=== PATIENT | female | born 1985 | race Asian ===

== ENCOUNTER 2017-09-08 04:36 | Emergency (ER) | payer BC ==
[~2017-09-08] VITALS: Ht 157.5 cm; Wt 96.6 kg
[2017-09-08] MEDS ORDERED: MULTIVITAMINS1 EAC8 ORAL (04:45)
--- NOTE | 2017-09-08 04:56 | Emergency Room Report ---
History of Present Illness General Chief Complaint: Upper Respiratory Illness Source: Patient Present Illness HPI Patient presents with complaints of cough Body ache Runny nose sore throat ongoing for the past 2 days Patient denies any neck pain or photophobia denies any headache denies any chest pain or short of breath denies any vomiting or diarrhea Allergies: Coded Allergies: No Known Allergies (Unverified , 09/08/17) Patient History Past Medical History: see triage record Pertinent Family History: none Last Menstrual Period: Feb Reviewed Nursing Documentation: PMH: Agreed, PSxH: Agreed Nursing Documentation-PMH Past Medical History: No Stated History Review of Systems All Other Systems: negative except mentioned in HPI Physical Exam Vital Signs Date Time Temp Pulse Resp B/P (MAP) Pulse Ox O2 Delivery O2 Flow Rate FiO2 09/08/17 04:41 99.3 109 16 137/92 95 Room Air 99.3 Sp02 EP Interpretation: reviewed, normal General Appearance: well appearing, no apparent distress Head: normocephalic, atraumatic Eyes: bilateral eye PERRL, bilateral eye EOMI ENT: hearing grossly normal, TMs + canals normal, uvula midline, pharyngeal erythema Neck: full range of motion, supple, no meningismus, no bony tend Respiratory: lungs clear, normal breath sounds, no rhonchi, no respiratory distress, no retraction, no accessory muscle use Cardiovascular #1: normal peripheral pulses, regular rate, rhythm, no edema, no gallop, no JVD, no murmur Gastrointestinal: normal bowel sounds, non tender, soft, no mass, no organomegaly, non-distended, no guarding, no hernia, no pulsatile mass, no rebound Musculoskeletal: normal inspection Neurologic: oriented x3, responsive, staff air defense officer III-XII nml as tested, motor strength/ tone normal, sensory intact Psychiatric: mood/affect normal Skin: normal color, no rash, warm/dry, palpation normal Lymphatic: normal inspection, no adenopathy Medical Decision Making Diagnostic Impression: Primary Impression: Flu-like symptoms ER Course Multiple differentials considered Patient's exam however is in line with what appears to be likely flulike symptoms Lung olsen are otherwise clear no signs of any respiratory distress Hemodynamically stable as well given the patient's presentation within 48 hours she will have attempt on Tamiflu And will have initial conservative outpatient trial Last Vital Signs Date Time Temp Pulse Resp B/P (MAP) Pulse Ox O2 Delivery O2 Flow Rate FiO2 09/08/17 04:41 99.3 109 16 137/92 95 Room Air 99.3 Status: unchanged Disposition: HOME, SELF-CARE Condition: Stable Additional Instructions: Patient is provided with the discharge instructions notified to follow up with primary doctor in the next 2-3 days otherwise return to the er with any worsening symptoms. Please note that this report is being documented using [employer] technology. This can lead to erroneous entry secondary to incorrect interpretation by the dictating instrument. MARK IBRAHIM D.O. Sep 08, 2017 04:56
[2017-09-08] MEDS ORDERED: ALBUTEROL SULF8.5 GM INH (04:58)
[2017-09-08] MEDS ORDERED: TAMIFLU75 MG ORAL (04:58)
[2017-09-08] MEDS ORDERED: PREDNISONE20 MG ORAL (04:58)
[2017-09-08] MEDS ORDERED: IBUPROFEN600 MG ORAL (04:58)
[2017-09-08 05:16] VITALS: BP 137/92
== END 2017-09-08 05:05 | disposition home or self-care (01) ==
LOC: EMR 05:01
DX: J11.1 Influenza due to unidentified influenza virus with other respiratory manifestations (principal)
CPT/HCPCS: 99282

== ENCOUNTER 2019-05-24 15:16 | Emergency (ER) | payer BC, OTHER ==
[~2019-05-24] VITALS: Ht 157.5 cm; Wt 93.0 kg
[~2019-05-24 15:16] MED LIST: ALBUTEROL SULF8.5 GM INH; IBUPROFEN600 MG ORAL; MULTIVITAMINS1 EAC8 ORAL; PREDNISONE20 MG ORAL; TAMIFLU75 MG ORAL
[2019-05-24] MEDS ORDERED: METFORMIN HCL500 M1 ORAL (15:29)
[2019-05-24 15:30] VITALS: BP 166/92
[2019-05-24] MEDS ORDERED: Morgan Lens TOPIC ONE (15:30)
--- NOTE | 2019-05-24 15:30 | NUR ---
ED Nurse Note: Pt aaox4, vsss, no acute distress. Pt came in for lt eye evaluation. PT'S LEFT EYE WAS SPLASHED WITH GASTRIC CONTENTS WHILE FEEDING HER PT WITH G TUBE AT 1230. Pt is cooperative and well groomed.
[2019-05-24] MEDS ORDERED: Isentress 400mg tab ORAL SCH (15:45)
--- NOTE | 2019-05-24 17:26 | NUR ---
ED Nurse Note: Blood work set to lab.
--- NOTE | 2019-05-24 17:36 | Emergency Room Report ---
History of Present Illness General Chief Complaint: Eye Problems Source: Patient Present Illness HPI 33-year-old female with no symptom past medical history here with exposure to HIV at work requesting testing. Patient was changing the G-tube on HIV- positive patient as gastric content splashed minimally in her left eye. Patient reports that she washed her eye immediately multiple times. Denies any blurry vision, burning sensation. 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 Patient denies any complaint at this time, denies chest pain, shortness of patient, and other associated symptoms. Denies any past history of HIV Allergies: Coded Allergies: No Known Allergies (Unverified , 09/08/17) Patient History Past Medical History: see triage record Past Surgical History: unable to obtain Pertinent Family History: none Last Menstrual Period: 02/20/19 Now: No Immunizations: UTD Reviewed Nursing Documentation: PMH: Agreed; PSxH: Agreed Review of Systems All Other Systems: negative except mentioned in HPI Physical Exam Vital Signs Date Time Temp Pulse Resp B/P (MAP) Pulse Ox O2 Delivery O2 Flow Rate FiO2 05/24/19 15:24 98.2 103 20 155/91 (112) 97 Room Air Sp02 EP Interpretation: reviewed, normal General Appearance: no apparent distress, alert, GCS 15, non-toxic Head: normocephalic, atraumatic Eyes: bilateral eye normal inspection, bilateral eye PERRL ENT: hearing grossly normal, normal pharynx, no angioedema, normal voice Neck: full range of motion, supple/symm/no masses Respiratory: chest non-tender, lungs clear, normal breath sounds, no rhonchi, no wheezing, speaking full sentences Cardiovascular #1: regular rate, rhythm, no edema, no murmur Gastrointestinal: normal bowel sounds, non tender, soft, non-distended, no guarding, no rebound Rectal: deferred Genitourinary: no CVA tenderness Musculoskeletal: back normal, gait/station normal, normal range of motion, non- tender, no calf tenderness Neurologic: alert, oriented x3, responsive, motor strength/tone normal, sensory intact, speech normal Psychiatric: judgement/insight normal, memory normal, mood/affect normal, no suicidal/homicidal ideation Skin: no rash Lymphatic: normal inspection Medical Decision Making PA Attestation Diagnosis and treatment plans were reviewed and discussed with my supervising physician Dr. 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 Patient was changing the G-tube on HIV- positive patient as gastric content splashed minimally in her left eye. Patient reports that she washed her eye immediately multiple times. Denies any blurry vision, burning sensation. 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 Patient denies any complaint at this time, denies chest pain, shortness of patient, and other associated symptoms. Denies any past history of HIV Ddx considered but are not limited to: Postexposure HIV, positive HIV Vital signs: are WNL, pt. is afebrile H&PE are most consistent with : Post exposure HIV, prophylaxis treatment for HIV postexposure ORDERS: Rapid HIV test, HIV RNA, hepatitis B and C antibody, urine test, Truvada,raltegavir ED INTERVENTIONS: shannan coleen, truvada, raltegavir DISCHARGE: At this time pt. is stable for d/c to home. Will provide printed patient care instructions, and any necessary prescriptions. Care plan and follow up instructions have been discussed with the patient prior to discharge. Patient to follow-up with her primary care provider, also repeat testing in 1 month. Pending results. Patient was explained that has very low chance of contraction of the disease so Last Vital Signs Date Time Temp Pulse Resp B/P (MAP) Pulse Ox O2 Delivery O2 Flow Rate FiO2 05/24/19 15:24 98.2 103 20 155/91 (112) 97 Room Air Disposition: HOME, SELF-CARE Condition: Stable Scripts Emtricitabine/Tenofovir (Truvada 200 mg-300 mg Tablet) 1 Each Tablet 1 TAB ORAL DAILY for 30 Days, #30 TAB Prov: Gavino Ware 05/24/19 Raltegravir (Isentress) 400 Mg Tablet 400 MG ORAL EVERY 12 HOURS for 30 Days, #60 TAB Prov: Gavino Ware 05/24/19 Referrals: NON PHYSICIAN (PCP) Patient Instructions: HIV Possible Exposure, Child Additional Instructions: The risk factors for kai HIV from an HIV positive patient by slashing bottle is a 3-year-old are very low as the patient was also on HIV medication. However do take your prep medication and follow with primary care provider. Testing to be repeated in 1 month. Gavino Ware May 24, 2019 17:36
[2019-05-24] MEDS ORDERED: TRUVADA1 TAB ORAL (17:38)
[2019-05-24] MEDS ORDERED: ISENTRESS400 MG ORAL (17:38)
[2019-05-24 17:57] VITALS: BP 160/91
--- NOTE | 2019-05-24 17:57 | NUR ---
ER DISCHARGE NOTE: Patient is cleared to be discharged per ERMD, pt is aox4, on room air, with stable vital signs. pt was given dc and prescription instructions, pt was able to verbalize understanding, pt id bandremoved without complications. pt is able to ambulate with steady gait. pt took all belongings.
== END 2019-05-24 17:57 | disposition home or self-care (01) ==
LOC: EMR 15:54
DX: Z20.6 Contact with and (suspected) exposure to human immunodeficiency virus [HIV] (principal); X58.XXXA Exposure to other specified factors, initial encounter; Y93.F9 Activity, other caregiving; Y92.129 Unspecified place in nursing home as the place of occurrence of the external cause; Y99.0 Civilian activity done for income or pay
CPT/HCPCS: 81025; 86703; 86706; 86803; 87536; 99284